=== PATIENT | female | born 1990 | race Caucasian/White ===

== ENCOUNTER 2022-10-02 11:58 | Emergency (ER) | payer OTHER, BC ==
[~2022-10-02] VITALS: Ht 157.5 cm; Wt 68.0 kg
[2022-10-02 12:18] VITALS: BP_SYST 134
[2022-10-02 12:57] LABS: BASOPHILS % (AUTO) 0.3 % (0.0-2.0); EOSINOPHILS # (AUTO) 0.2 K/uL (0.0-0.4); EOSINOPHILS % (AUTO) 1.7 % (0.0-4.0); HEMOGLOBIN 12.3 g/dL (12.0-16.0); LYMPHOCYTES # (AUTO) 1.9 K/uL (1.0-5.5); LYMPHOCYTES % (AUTO) 19.1 % (20.5-51.5); MEAN CORPUSCULAR HEMOGLOBIN 29 pg (27-31); MEAN CORPUSCULAR HGB CONC 33 % (32-36); MEAN CORPUSCULAR VOLUME 87 fL (79.0-98.0); MONOCYTES # (AUTO) 0.8 K/uL (0.0-1.0); MONOCYTES % (AUTO) 8.2 % (1.7-9.3); NEUTROPHILS # (AUTO) 7.1 K/uL (1.8-7.7); NEUTROPHILS % (AUTO) 70.7 % (40.0-70.0); PLATELET COUNT (AUTO) 341 K/uL (130-430); RED BLOOD CELL COUNT(AUTO) 4.24 MIL/uL (4.2-6.2); RED CELL DISTRIBUTION WIDTH 14.1 % (9.0-15.0)
[2022-10-02 13:16] LABS: BILIRUBIN,URINE NEGATIVE (NEGATIVE); BLOOD, URINE 3+ (NEGATIVE); CLARITY/URINE CLOUDY (CLEAR); COLOR,URINE RED (YELLOW); GLUCOSE,URINE NEGATIVE (NEGATIVE); KETONES,URINE TRACE (NEGATIVE); LEUKOCYTE ESTERASE ,URINE 1+ (NEGATIVE); NITRITE, URINE POSITIVE (NEGATIVE); PROTEIN URINE 3+ (NEGATIVE)
[2022-10-02 13:20] LABS: INR 0.9 (0.8-1.2); PROTHROMBIN TIME 9.8 SECS (9.5-12.5)
[2022-10-02 13:21] LABS: BACTERIA,URINE FEW /HPF (None Seen); RBC,URINE >100 /HPF (0-3)
[2022-10-02] MEDS ORDERED: ACETAMINOPHEN 500 MG TABLET PO ONE (13:30)
[2022-10-02] MEDS ORDERED: NITR-85 PO (14:14)
[2022-10-02] MEDS ORDERED: cefTRIAXone 1 GM in LIDOCAINE 1%, 20 ML MDV 2.1 ML IM ONE (14:15)
[2022-10-02 14:44] VITALS: BP_SYST 134
== END 2022-10-02 14:45 | disposition home or self-care (01) ==
LOC: SED 11:58
DX: O20.9 Hemorrhage in early pregnancy, unspecified (principal); Z3A.01 Less than 8 weeks gestation of pregnancy; Z79.899 Other long term (current) drug therapy
CPT/HCPCS: 99284; 76801; 81000; 84702; 85025; 85610; 85730; 86900; 86901; 87086; 36415; 81025; J0696; J2001

== ENCOUNTER 2023-04-21 21:55 | Emergency (ER) | payer BC, OTHER ==
[~2023-04-21] VITALS: Ht 149.9 cm; Wt 62.1 kg
[~2023-04-21 21:55] MED LIST: NITR-85 PO
[2023-04-21 22:07] VITALS: BP_SYST 126; PULSE 113; RESP 18; TEMP 97.9; O2SAT 97
[2023-04-21 23:57] VITALS: BP_SYST 126; PULSE 113; RESP 18; TEMP 97.9; O2SAT 97
== END 2023-04-21 23:57 | disposition left against medical advice (07) ==
LOC: SED 21:55
DX: O20.9 Hemorrhage in early pregnancy, unspecified (principal); Z3A.01 Less than 8 weeks gestation of pregnancy; E11.9 Type 2 diabetes mellitus without complications; Z79.899 Other long term (current) drug therapy
CPT/HCPCS: 99281

== ENCOUNTER 2023-06-21 07:35 | Outpatient (CLI) | payer OTHER ==
[2023-06-21] MEDS ORDERED: iohexoL 240 mgI/mL, 50 ML INFUS..BTL IV ONE (08:08)
== END 2023-06-21 18:10 | disposition home or self-care (01) ==
LOC: SRD 07:35
PROVIDERS: ATTEND Specialist
DX: N96 Recurrent pregnancy loss (principal); N97.9 Female infertility, unspecified
CPT/HCPCS: 74740; 58340; Q9966